=== PATIENT | female | born 1955 | race Caucasian/White ===

== ENCOUNTER 2017-12-02 09:20 | Day surgery (SDC) | payer BC ==
[2017-11-29 11:43] LABS: Urine Appearance CLEAR; Urine Bilirubin NEGATIVE (NEG); Urine Blood NEGATIVE (NEG); Urine Color YELLOW; Urine Glucose NEGATIVE (NEG); Urine Protein NEGATIVE (NEG); Urine Specific Gravity <=1.005 (1.005-1.030); Urine Urobilinogen 0.2 mg/dL (0.2-1.0); Urine pH 6.5 (5.0-7.0)
[2017-11-29 11:47] LABS: Urine Microscopic Reflex NO UMIC
[2017-11-29 11:47] LABS: Absolute Lymphocytes (CBC) 1.5 K/uL (0.7-4.9); Absolute Monocytes 0.5 K/uL (0.1-1.3); Absolute Neutrophil 3.9 K/uL (1.8-8.0); Basophils % 0.5 % (0-1.3); Eosinophils % 0.5 % (0-4.4); Lymphocytes % 25.5 % (15.3-44.8); MCH 29.6 pg (27.0-35.0); MCV 89.1 fL (80-100); MPV 7.4 fL (7.6-11.3); Monocytes % 8.9 % (3.3-12.3); RBC Red Blood Cell Count 4.38 M/uL (3.86-4.86)
[2017-12-02] MEDS ORDERED: Ringers Lactate 1,000 ML IV ONE ×2 (09:50→12:51)
[2017-12-02] MEDS ORDERED: CEFAZOLIN/SWI 1gm 1 GM/10 ML SYR ONE (09:50)
[2017-12-02] MEDS ORDERED: SCOPOLAMINE HYDROBROMIDE PATCH TD ONE (09:56)
[2017-12-02] MEDS ORDERED: PROPOFOL 200 MG/20 ML VIAL IV ONE (10:37)
[2017-12-02] MEDS ORDERED: LIDOCAINE 2% MPF 5 ML VIAL ONE (10:38)
[2017-12-02] MEDS ORDERED: ONDANSETRON 4 MG/2 ML VIAL ONE ×2 (10:38→12:46)
[2017-12-02] MEDS ORDERED: FENTANYL CITR 250 MCG/5 ML ONE (10:38)
[2017-12-02] MEDS ORDERED: GLYCOPYRROLATE 0.2 MG/ML SYR ONE ×2 (10:38→11:47)
[2017-12-02] MEDS ORDERED: MIDAZOLAM HCL 2 MG/2 ML INJ ONE (10:38)
[2017-12-02] MEDS ORDERED: ROCURONIUM 50 MG/5 ML VIAL IV ONE ×2 (10:39→12:13)
[2017-12-02] MEDS ORDERED: NA CHLORIDE 0.9% 1,000 ML ONE (11:29)
[2017-12-02] MEDS ORDERED: EPHEDRINE SULF 50 MG/5 ML SYR ONE (11:48)
[2017-12-02] MEDS ORDERED: DEXAMETHASONE 10 MG/ML VIAL ONE (11:54)
[2017-12-02] MEDS ORDERED: KETOROLAC 30 MG/ML INJ ONE (12:46)
[2017-12-02] MEDS ORDERED: MORPHINE 10 MG/ML VIAL ONE (12:46)
[2017-12-02] MEDS ORDERED: MEPERIDINE HCL 25 MG/0.5 ML ONE (13:49)
[2017-12-02] MEDS ORDERED: PROMETHAZINE 25 MG/ML VIAL ONE (13:49)
[2017-12-02 14:13] VITALS: O2SAT 100
[2017-12-02] MEDS ORDERED: HYDROCODONE/APAP 5/325 MG TAB ONE (14:39)
[2017-12-02 16:09] VITALS: BP 116/60; TEMP 99
--- NOTE | 2017-12-02 23:54 | OP ---
Surgeon: Susu Payton MD Preoperative Diagnosis: The patient is with complex endometrial hyperplasia after investigation for postmenopausal bleeding. Personal history of breast cancer, the patient is on tamoxifen. Postoperative Diagnosis: The patient is with complex endometrial hyperplasia after investigation for postmenopausal bleeding. Personal history of breast cancer, the patient is on tamoxifen. Procedures Performed: Total laparoscopic hysterectomy, bilateral salpingo-oophorectomy, pelvic washi ngs, and cystoscopy. Anesthesia: General endotracheal. Specimens: Uterus, tubes, and ovaries with pelvic washings. Complications: None. Drains: None. Condition: Stable. Findings: Three abdominal incisions for the scope. The uterus was slightly enlarged. Ovaries and t ubes appeared grossly normal. Vaginal cuff closure with V-Loc. Cystoscopy negative. Indication For Procedure: The patient is a 61-year-old presented with postmenopausal bleeding. On e ndometrial sampling, she was found to have complex endometrial hyperplasia without atypia. The patie nt has been on tamoxifen for breast cancer for 3-1/2 years. So, we discussed the benefits and risks and options, observation with followup, sampling, and ultrasound surveillance, and in case atypia was found, then she wished to proceed with hysterectomy. There is no option of treatment with progester one since the patient's breast cancer and then option of hysterectomy and BSO. Given the fact that s he is on tamoxifen and taking antiestrogen, it would be beneficial to remove her ovaries. After disc ussion with her oncologist, the patient decided to do that, so we are proceeding with TLH-BSO. Procedure In Detail: After informed consent was verified, she was brought to the OR. 1 g of Ancef w as given. She was placed in a supine fashion. General anesthesia was given. She was placed in a do rsal lithotomy position with the arms tucked by the side. Pelvic exam was performed, uterus 6-8 week s, mildly enlarged, but no adnexal masses, mobile. Abdomen, vulva, vagina, and perineum were prepped and draped in a sterile fashion. Perdomo was placed to drain the bladder and attached for retrograde filling to an LR bag, emptied 300. Large VCare intr oduced without any problems and fixed in place. This area was then draped. A 1 cm infraumbilical incision was made using the open laparoscopy technique. The fascia was incised , tagged, peritoneum entered bluntly, and Celso introduced into the peritoneal cavity with S retract ors. Site of entry was checked. Upper abdominal cavity was inspected. Liver, gallbladder, omentum, and peritoneal surface were completely unremarkable. The patient was placed in a Trendelenburg posi tion and 5 mm left lower quadrant and 10 mm suprapubic trocars were placed under direct vision withou t any problems. The pelvic survey was done. Both ureters were in the normal anatomical position wit hout any distortion. Ovaries and tubes normal. Uterus was slightly enlarged. Pelvic washings were performed. Then, hysterectomy was started. A 5-mm bipolar LigaSure was used. The bipolar LigaSure was used. First, the utero-ovarian ligament, round tube, mesosalpinx, round ligaments were all taken down on the left. The broad ligament was opened up and the peritoneum was incised anteriorly and po steriorly to raise the bladder flap in the front and back towards the left uterosacral ligament. The n, the broad ligament was skeletonized to expose the vessels and isolated them. On the opposite side , similar dissection was performed. Vessels were then isolated. The anterior bladder flap was done by incising the precervical fascia, the connected tissue slightly to score and then entered the vesic ovaginal space. Once this was entered, the bladder was pushed inferiorly without any problems. Slig htly less dissection was done on the right side than then on the left side; however, after the whole circumference of the VCare was well visualized, the vessels were taken down firstly on the right side with a bipolar basket; however, this then worked as well so took it down with the LigaSure. Then, t he cardinal ligaments were also taken down and on the left side similar dissection was performed taki ng the uterine artery and vein and then the cardinal ligaments. A circumferential colpotomy was perf ormed with the help of a monopolar hook blade. The specimen was detached and pulled through the vagi na. Thorough irrigation and suction were performed. Tube and ovary were removed, firstly on the lef t and then on the right side dissecting the broad ligament and IP ligament. Once all these were take n down, the specimen remained attached on the left and was pulled out on the right side. They were d etached and pulled out. Thorough irrigation and suction were performed. All pedicles were hemostati c. The left angle of the cuff was closed with the help of 0 Vicryl in a simple fashion. Then, V-Loc was used to place 7 sutures without any issues and this was tied medial to the lateral Vicryl stitch on the left. Then, thorough irrigation and suction were performed. Trocars were removed under dire ct vision. Fascia was closed with 0 Vicryl in a [id number]-lg-ixdyd fashion and then simple 2-0 Vicryl s utures were placed on the suprapubic fascial incision. All the skin incisions were closed with the h elp of interrupted Monocryl. Cystoscopy was performed with a 30-degree lens, normal saline for distention medium, and a 17-Moroccan sheath. There was excellent filling. The both ureteric orifices were single and patent. Strong jet s were seen. No tumors or diverticula. The bladder drained and vagina cleaned and scoped and there was excellent apposition without any problems. Instrument, needle, and sponge counts x3 were correct at the end of the case. EBL was minimal. She was recovered from anesthesia in the OR and taken to PACU in stable condition. She will follow up in 1 week. CLAUDY/NAVA Voice ID: [id number] Report ID: [id number]
== END 2017-12-02 16:35 | disposition home or self-care (01) ==
LOC: PRE 09:20
PROVIDERS: ATTEND Obstetrics & Gynecology
PROC: 0UT24ZZ Resection of Bilateral Ovaries, Percutaneous Endoscopic Approach (ICD-10-PCS; 2017-12-02)
PROC: 0UT74ZZ Resection of Bilateral Fallopian Tubes, Percutaneous Endoscopic Approach (ICD-10-PCS; 2017-12-02)
PROC: 0UT94ZZ Resection of Uterus, Percutaneous Endoscopic Approach (ICD-10-PCS; principal; 2017-12-02 10:30)
DX: N85.02 Endometrial intraepithelial neoplasia [EIN] (principal); N72 Inflammatory disease of cervix uteri; D25.9 Leiomyoma of uterus, unspecified; N83.8 Other noninflammatory disorders of ovary, fallopian tube and broad ligament; Z85.3 Personal history of malignant neoplasm of breast; Z79.810 Long term (current) use of selective estrogen receptor modulators (SERMs)
CPT/HCPCS: 36415; 81003; 85025; 86850; 86900; 86901; 88108; 88305; 88307; J0690; J1100; J2175; J2250; J2405; J2550; J7030

== ENCOUNTER 2023-09-30 11:48 | Day surgery (SDC) | payer BC ==
--- NOTE | 2023-09-24 13:40 | EKG ---
Test Date: 2023-09-23 Test Time: 14:11:56 [employer] Operator: NILO MEASUREMENT RESULTS: Intervals: Rate: 55 OR: 182 QRSD: 84 QT: 438 QTc: 419 [place]: P: 73 OR: 182 QRS: 73 T: 70 INTERPRETIVE STATEMENTS: Sinus bradycardia Cannot rule out Anterior infarct, age undetermined Abnormal ECG Compared to ECG 09/10/2014 11:38:28 Myocardial infarct finding now present Electronically Signed On 09-24-23 13:38:54 STORE STOCK ASSOCIATE by Rocael Kapadia
[2023-09-30] MEDS ORDERED: LIDOCAINE 1% MPF 5 ML VIAL ONE (11:56)
[2023-09-30] MEDS ORDERED: ROCURONIUM 50 MG/5 ML VIAL IV ONE (11:56)
[2023-09-30] MEDS ORDERED: propofoL 200 MG/20 ML VIAL IV ONE (11:57)
[2023-09-30] MEDS ORDERED: MIDAZOLAM HCL 2 MG/2 ML INJ ONE (11:57)
[2023-09-30] MEDS ORDERED: FENTANYL CITR 100 MCG/2 ML ONE (11:57)
[2023-09-30] MEDS ORDERED: Ringers Lactate 1,000 ML IV ONE (12:01)
[2023-09-30] MEDS ORDERED: CEFAZOLIN SODIUM 2 GM/VIAL ONE (12:01)
[2023-09-30] MEDS: LIDOCAINE HCL/EPINEPHRINE 20 ML MDV ONE ×2 (13:13→13:22)
[2023-09-30] MEDS ORDERED: LIDOCAINE HCL/EPINEPHRINE 20 ML MDV ONE (13:22)
[2023-09-30] MEDS ORDERED: EPHEDRINE SULF 50 MG/ML VIAL ONE (13:35)
[2023-09-30 16:45] VITALS: BP 117/62; TEMP 98; O2SAT 96
--- NOTE | 2023-09-30 20:05 | RAD REPORT ---
EXAM DESCRIPTION: RAD - Fluoroscopy <1 Hour - 09/30/2023 2:38 pm CLINICAL HISTORY: SACRAL NEURO MOD. COMPARISON: None available. FINDINGS: Seven Images were sent to PACS, documenting fluoroscopy utilization during sacral neural m odulator placement see. No radiologist was available for the procedure, nor will any image interpreta tion he provided. Please refer to the procedural report for additional details. Fluoroscopy time: 0.8 Minutes. IMPRESSION: Documentation of fluoroscopy utilization as above.
--- NOTE | 2023-10-04 09:57 | OP ---
Date of Procedure: 09/30/2023 Surgeon: Susu Payton MD Stenographer Print Shop: No clinical assistant. Preoperative Diagnoses: Urge urinary incontinence, refractory overactive bladder. Postoperative Diagnoses: Urge urinary incontinence, refractory overactive bladder. Procedures Performed: InterStim nerve stimulation stage 1-incision and implantation of tined quadrip olar lead electrodes into S3 foramen with fluoroscopic guidance for needle placement. Anesthesia: General endotracheal. Specimens: No specimens. Complications: No complications. Drains: No drains. Estimated Blood Loss: Less than 5 mL. Findings: Left S3 lead was placed and a pocket was created on the left side with the external wire c oming out off the left side as well. Indications: The patient is a 67-year-old lady with significant urge urinary incontinence and overac tive bladder that has to first and second-line therapies. Third line therapy was reviewed with the patient was performed, which she was not responsive to. We discussed options of a staged procedure with stage I first and then later stage 2, if stage 1 was successful versus just moving on with the other options for treatment. The patient had thought about this for a few months and she has chose to come back for stage 1, for which she was consented and brought to the OR. Description Of Procedure: The patient was properly identified and brought to the OR. She was placed in a supine fashion on the bed itself and after general anesthesia was given, she was placed in a pr one position by the OR protocol. Two pillows were placed under her lower abdomen to flatten her sacr um and under her shins to allow the toes to dangle freely. She was prepped and draped in a sterile f ashion using ChloraPrep solution. The C-arm was draped and moved into AP position to provide fluoros copic mapping of the sacral region. This included marking out the midline of the sacrum, the lateral margins of the sacrum, SI joints were marked as well as sciatic notches and medial foraminal borders , and sacral foramina were identified. The C-arm was moved to the lateral position to image the area from the sacral promontory to the coccyx. Local injection, 20 cc was used in toto on both sides. A foramen needle was then placed approximately 2 cm above the sciatic notch and 2 cm lateral to the sa cral midline and feeling through the foraminal margins until the S3 foramen was identified and penetr ated. The depth of the needle was confirmed and adjusted fluoroscopically in the lateral position. The proper needle position was confirmed then the motor function was tested. The patient just had only Negrito mildly and no toe response. So, I tried to insert slightly above and come from the lateral to medial ankle, but this did not produce any form of greater toe flexion. On the right side, the S3 foramen was approached and the needle inserted here. There was a significa nt S2 response in this even though the fluoroscopic imaging was consistent with S3. Another trial was done on the left side going back to the short side and slightly lower than where th e position was in the last placement, went down to S4 and there was excellent Bellow response ___. The needle above the level was confirmed to be S3. We placed the needle from a slightly latera l to medial angle and tested. There was significant Negrito on reaction, but no plantar toe flexion. I decided to leave the S3 as confirmed fluoroscopically on the left side. The other needle was remov ed. The bidirectional guide was placed to the first marking. The needle was removed without changin g the position of the stylet. The skin incision was expanded with an 11 blade. The plastic dilator was placed over it and the tip of it was advanced to the anterior border of the sacrum. Then, the bi directional guide was removed along with the obturator. Then, the lead was placed without any proble ms. Once this was done, initially, it picked up S2. However, on repositioning by changing the direc tion, it went on to bead picker the S3 with good Negrito on leads 1, 2 and 3. Lead 0 had no response of any kind. No toe flexion. On fluoroscopic confirmation lateral and AP, this was S3 foramen and so I decided to leave this in th e position. Ipsilateral pocket for the battery was made. Then, an incision was made in the subcutan eous tissues posterior to the iliac crest and lateral to the sacrum. Blunt dissection was continued until the gluteal fascia was identified and hemostasis was achieved here. A tunneling tool with stra w was placed from the lead exit site subcutaneously to the pocket side. Tunneling tool was removed a nd the lead was fed through the straw and pulled out of the pocket site. The lead was then cleansed off bodily fluids and dried and protective boot was placed over the lead. Once the lead was inserted into the temporary percutaneous extension and the metal bands were aligned, the wire leading away fr om this were bunched together with a silk stitch to prevent over-retraction. Then, the lead was used inserted into the temporary percutaneous extension and the metal bands were aligned and the 4 set sc rews were tightened with a hex wrench. The boot was pushed over the connection and the silk ties wer e sutured to the boot grooves on either side of the connection. The tunnel was made subcutaneously a nd exited at the puncture site above the ipsilateral buttock. The percutaneous extension was placed through the straw and exposed and connected to the Twist-Lock cable. The wounds were irrigated with antibiotic solution, water and closed with the help of 4-0 chromic. T hen, the skin sutures with 5-0 Monocryl. Counts were correct. Steri-Strips were placed and gauze 4x 4s were placed over the incisions. Tegaderm was placed to cover the incisions. Gauze was to ___ Twist-Lock cable connector. The patient was transferred to the recovery room in satisfactory con dition. Next, on testing, the patient was programmed to the electrode of optimal sensation and given instructions on utilizing the external stimulator prior to discharge and that will be kep t until return to my office in 1 week and the setting was program 4 at 4.5 milliamps. The patient wa s recovered from anesthesia and taken to PACU in stable condition and her was debriefed about the procedure. CLAUDY/NAVA Voice ID: [id number] Report ID: [id number]
== END 2023-09-30 16:10 | disposition home or self-care (01) ==
LOC: OR 11:48
PROVIDERS: ATTEND Obstetrics & Gynecology
PROC: 01HY3MZ Insertion of Neurostimulator Lead into Peripheral Nerve, Percutaneous Approach (ICD-10-PCS; principal; 2023-09-30 13:30)
DX: N39.41 Urge incontinence (principal); N32.81 Overactive bladder; I10 Essential (primary) hypertension; E78.5 Hyperlipidemia, unspecified; M81.0 Age-related osteoporosis without current pathological fracture
CPT/HCPCS: 93005; 76000; 64561; J2704; J2001; J2250; J3010; J7120; C1778

== ENCOUNTER 2023-10-14 06:01 | Day surgery (SDC) | payer BC ==
[2023-10-14] MEDS ORDERED: Ringers Lactate 1,000 ML IV ONE ×2 (06:11→07:37)
[2023-10-14] MEDS ORDERED: LIDOCAINE HCL/EPINEPHRINE 20 ML MDV ONE (06:14)
[2023-10-14] MEDS ORDERED: propofoL 1,000 MG/100 ML VIAL IV ONE (06:50)
[2023-10-14] MEDS ORDERED: LIDOCAINE 1% MPF 5 ML VIAL ONE (06:51)
[2023-10-14] MEDS ORDERED: MIDAZOLAM HCL 2 MG/2 ML INJ ONE (06:51)
[2023-10-14] MEDS ORDERED: FENTANYL CITR 100 MCG/2 ML ONE (06:51)
[2023-10-14] MEDS: CEFAZOLIN SODIUM 2 GM/VIAL ONE ×2 (06:57→07:20)
[2023-10-14] MEDS ORDERED: HYDROCODONE/APAP 5/325 MG TAB PO PRN (08:15)
--- NOTE | 2023-10-14 08:17 | P.BOP ---
Preoperative diagnosis: urge incontinence, refractory OAB Postoperative diagnosis: same Primary procedure: stage 2 Interstim, Implantation of neurostimulator with programming Estimated blood loss: min Specimen: none Findings: Left buttock pocket, impedence check done and programmed Anesthesia: MAC Complications: None Implants: [employer] Interstim 2 Transferred to: Recovery Room Condition: Good
[2023-10-14] MEDS ORDERED: ASPIRIN EC 81 MG TAB PO SCH (09:00)
[2023-10-14] MEDS ORDERED: HOME MED 1 EA UNK (Cranberry [Cranberry] 500 MG Capsule) PO SCH (09:00)
[2023-10-14] MEDS ORDERED: BIMATOPROST TP SCH (09:00)
[2023-10-14] MEDS ORDERED: HOME MED 1 EA UNK (Multivitamin [Multivitamins] Capsule) PO SCH (09:00)
[2023-10-14] MEDS ORDERED: HOME MED 1 EA UNK (Cyclosporine [Restasis] Droperette) EACH EYE SCH (09:00)
[2023-10-14] MEDS ORDERED: HOME MED 1 EA UNK (L.Acidoph,Paracasei, B.Lactis [Probiotic] Capsule) PO SCH (09:00)
[2023-10-14] MEDS ORDERED: BIOTIN 10000 MCG PO SCH (09:00)
[2023-10-14 09:44] VITALS: BP 112/64; TEMP 97; O2SAT 100
[2023-10-14] MEDS ORDERED: CANDESARTAN CILEXETIL 4 MG PO SCH (21:00)
== END 2023-10-14 09:22 | disposition home or self-care (01) ==
LOC: OR 06:01
PROVIDERS: ADMIT Obstetrics & Gynecology; ATTEND Obstetrics & Gynecology
PROC: 0JH73BZ Insertion of Single Array Stimulator Generator into Back Subcutaneous Tissue and Fascia, Percutaneous Approach (ICD-10-PCS; principal; 2023-10-14 07:00)
DX: N39.41 Urge incontinence (principal); I10 Essential (primary) hypertension; E78.5 Hyperlipidemia, unspecified; M81.0 Age-related osteoporosis without current pathological fracture
CPT/HCPCS: 64590; J2704; J2001; J2250; J3010; J7120 ×2; C1767